=== PATIENT | female | born 1970 | race Caucasian/White ===

== ENCOUNTER 2016-12-15 10:05 | Emergency (ER) | payer OTHER ==
[~2016-12-15] VITALS: Ht 172.7 cm; Wt 88.1 kg
[~2016-12-15 10:05] MED LIST: AMOXICILLIN875 MG PO; APIDRA SOL100 UNIT/1 SC; CAPITAL WITH C473 ML PO; CARAFATE100 MG/ML PO; COMBIVENT RESPIM4 GM IH; CONSTULOSE10 GM/15 M PO; DOXYCYCLINE HY100 MG PO; DUONEB 2.5-0.5 M3 ML IH; FLOVENT 11120 INHALA IH; GLUCOPHAGE500 MG PO; LANTUS 3 M100 UNITS1 SC; LASIX20 MG PO; NEURONTIN300 MG PO; NORVASC5 MG PO; PROTONIX40 MG PO; SINGULAIR10 MG PO; TRAMADOL HCL50 MG PO; VICODIN 5-3001 EACH PO
[2016-12-15 11:40] LABS: EOSINOPHIL (%) 4.4 % (0-5); EOSINOPHIL COUNT 0.4 K/uL (0-0.3); HEMATOCRIT 40.3 % (36.0-46.0); IMMATURE GRANULOCYTE (%) 0.5 % (0.0-0.7); IMMATURE GRANULOCYTE COUNT 0.5 K/uL; LYMPHOCYTE COUNT 2.4 K/uL (1.0-2.8); MCH 27.2 PG (29.0-34.0); MCHC 31.8 G/DL (30.0-36.0); MCV 85.7 FL (83-99); MEAN PLAT.VOLUME 11.4 uM^3 (9.5-12.4); MONOCYTE (%) 4.7 % (3-12); MONOCYTE COUNT 0.4 K/uL (0-0.8); NEUTROPHIL (%) 64.7 % (45-76); NEUTROPHIL COUNT 6.1 K/uL (1.8-6.4); PLATELET COUNT 290 K/uL (156-360); RBC DIS.WIDTH-CV 13.8 % (11.8-14.6); RBC DIS.WIDTH-SD 42.7 % (39-53); WHITE BLOOD COUNT 9.5 K/uL (4.1-10.2)
[2016-12-15 12:27] LABS: ANION GAP 6 MEQ/L (2-14); CHLORIDE 105 MEQ/L (99-109); POTASSIUM 4.2 MEQ/L (3.7-5.4); SAMPLE HEMOLYSIS CHECK 0; SAMPLE ICTERIC CHECK 0; SAMPLE LIPEMIA CHECK 0; SODIUM 137 MEQ/L (136-147)
[2016-12-15 12:32] LABS: GFR ESTIMATE (CALCULATED) > 59 mL/min/; GLUCOSE 256 mg/dL (70-99); UREA NITROGEN (BUN) 14 mg/dL (9-23)
[2016-12-15 12:33] LABS: TROP-I INTERPRETATION NEGATIVE; TROPONIN-I < 0.01 ng/mL (0.0-0.30)
[2016-12-15 13:55] LABS: TROP-I INTERPRETATION NEGATIVE; TROPONIN-I < 0.01 ng/mL (0.0-0.30)
[2016-12-15 14:42] VITALS: BP 162/77
== END 2016-12-15 14:40 | disposition left against medical advice (07) ==
LOC: EME 10:05
PROVIDERS: Emergency Medicine
DX: R07.9 Chest pain, unspecified (principal); F17.200 Nicotine dependence, unspecified, uncomplicated; Z88.1 Allergy status to other antibiotic agents; Z88.6 Allergy status to analgesic agent; Z88.5 Allergy status to narcotic agent; J45.909 Unspecified asthma, uncomplicated; E11.9 Type 2 diabetes mellitus without complications; Z79.4 Long term (current) use of insulin; I10 Essential (primary) hypertension; Z87.442 Personal history of urinary calculi; K21.9 Gastro-esophageal reflux disease without esophagitis
CPT/HCPCS: 71020; 80048; 84484; 85025; 93005; 99281; 99284